=== PATIENT | male | born 1965 | race Caucasian/White ===

== ENCOUNTER 2020-07-30 22:07 | Inpatient (IN) | payer OTHER ==
[2020-07-30 22:15] VITALS: TEMP 98.3
[2020-07-30] MEDS ORDERED: NITROGLYCERIN SL TABS 0.4 MG TAB SUBLINGUAL STA (22:37)
--- NOTE | 2020-07-30 22:44 | ED ---
Chest Pain HPI - General Chief Complaint: Chest Pain Stated Complaint: Chest Pain Time Seen by Provider: 07/30/20 22:09 Source: patient, EMS Mode of arrival: EMS Limitations: no limitations - History of Present Illness MD Complaint: chest pain Onset/Timin -: hour(s) Onset: during rest Pain Location: substernal Pain Radiation: neck Severity: moderate Quality: other ("pinching") Consistency: constant Improves With: nitroglycerin Worsens With: nothing Anginal Symptoms: nausea, diaphoresis, dyspnea Treatments Prior to Arrival: aspirin, nitroglycerin, oxygen - Related Data Home Medications Medication Instructions Recorded Confirmed Albuterol Inhaler [Ventolin Hfa 2 puff INHALATION RT-QID PRN 07/31/20 07/31/20 Inhaler] Amitriptyline HCl [Elavil] 10 mg PO HS 07/31/20 07/31/20 Aspirin EC [Ecotrin Low Dose] 81 mg PO DAILY 07/31/20 07/31/20 Atorvastatin [Lipitor] 40 mg PO DAILY 07/31/20 07/31/20 Balance Of Nature Veggies 3 cap PO DAILY 07/31/20 07/31/20 Benzonatate [Tessalon Perles] 200 mg PO TID PRN 07/31/20 07/31/20 Enalapril [Vasotec] 20 mg PO DAILY 07/31/20 07/31/20 Golo Diet Supplement 1 cap PO AC-TID 07/31/20 07/31/20 Montelukast [Singulair] 10 mg PO HS 07/31/20 07/31/20 Propranolol HCl 80 mg PO DAILY 07/31/20 07/31/20 metFORMIN HCL ER [Glucophage Xr] 1,000 mg PO DAILY 07/31/20 07/31/20 Previous Rx's Medication Instructions Recorded Pantoprazole [Protonix] 40 mg PO AC-BRKFST #30 tablet. 07/31/20 Allergies Allergy/AdvReac Type Severity Reaction Status Date / Time codeine AdvReac Nausea & Verified 07/31/20 07:06 Vomiting morphine AdvReac Nausea & Verified 07/31/20 07:06 Vomiting Review of Systems ROS Statement: Those systems with pertinent positive or pertinent negative responses have been documented in the HPI. ROS Other: All systems not noted in ROS Statement are negative. Constitutional: Denies: fever, chills Respiratory: Reports: dyspnea. Denies: cough, hemoptysis Cardiovascular: Reports: chest pain. Denies: palpitations, orthopnea, edema, syncope Gastrointestinal: Reports: nausea. Denies: abdominal pain, vomiting, diarrhea Genitourinary: Denies: dysuria, hematuria Musculoskeletal: Denies: back pain Skin: Denies: rash Neurological: Denies: headache, weakness, numbness EKG Findings - EKG Results: EKG: interpreted by ERMD, sinus rhythm, normal axis, normal QRS, normal ST/T EKG shows: bradycardia (rate 58 bpm) Past Medical History Past Medical History: No Reported History History of Any Multi-Drug Resistant Organisms: None Reported Past Surgical History: Appendectomy, Cholecystectomy Past Psychological History: PTSD Smoking Status: Former smoker Past Alcohol Use History: Rare Past Drug Use History: None Reported - Past Family History family Additional Family Medical History / Comment(s): mother with CAD requiring multiple stents General Exam Limitations: no limitations General appearance: alert, in no apparent distress Head exam: Present: atraumatic, normocephalic Eye exam: Present: normal appearance. Absent: scleral icterus, conjunctival injection ENT exam: Present: normal oropharynx Neck exam: Present: normal inspection Respiratory exam: Present: normal lung sounds bilaterally, wheezes (trace expiratory wheeze). Absent: respiratory distress, rales, rhonchi, stridor Cardiovascular Exam: Present: normal rhythm, bradycardia, normal heart sounds. Absent: systolic murmur, diastolic murmur, rubs, gallop GI/Abdominal exam: Present: soft. Absent: distended, tenderness, guarding, rebound, rigid, mass Back exam: Present: normal inspection. Absent: CVA tenderness (R), CVA tenderness (L) Neurological exam: Present: alert Skin exam: Present: warm, dry, intact, normal color. Absent: rash Course Vital Signs 07/30/20 07/31/20 22:08 07:39 Temperature 98.3 F Pulse Rate 59 L 80 Respiratory 16 18 Rate Blood Pressure 142/78 134/61 O2 Sat by Pulse 96 99 Oximetry Disposition Clinical Impression: Chest pain, Hyperglycemia Disposition: ADMITTED IP TO THIS [facility] Condition: Stable
[2020-07-30 23:06] LABS: Basophils % (A) 0 %; Eosinophils # (A) 0.1 k/uL (0-0.7); Eosinophils % (A) 1 %; HCT 40.5 % (39.0-53.0); HGB 13.9 gm/dL (13.0-17.5); Lymphocytes # (A) 2.3 k/uL (1.0-4.8); Lymphocytes % (A) 22 %; MCH 30.5 pg (25.0-35.0); MCHC 34.2 g/dL (31.0-37.0); MCV 89.1 fL (80.0-100.0); Monocytes # (A) 0.6 k/uL (0-1.0); Monocytes % (A) 6 %; Neutrophils # (A) 7.5 k/uL (1.3-7.7); Neutrophils % (A) 71 %; Platelet Count 226 k/uL (150-450); RBC 4.55 m/uL (4.30-5.90); RDW 13.4 % (11.5-15.5); WBC 10.5 k/uL (3.8-10.6)
[2020-07-30 23:18] LABS: INR 0.9 (<1.2); Partial Thromboplastin Time 22.2 sec (22.0-30.0); Prothrombin Time 9.7 sec (9.0-12.0)
[2020-07-30 23:23] LABS: ALT 23 U/L (4-49); AST 36 U/L (17-59); African American GFR (CKD) >90 (>60 ml/min/1.73 sqM); Alkaline Phosphatase 159 U/L (38-126); Amylase 68 U/L (30-110); Anion Gap 9 mmol/L; Blood Urea Nitrogen 21 mg/dL (9-20); Calcium 9.4 mg/dL (8.4-10.2); Carbon Dioxide 23 mmol/L (22-30); Chloride 106 mmol/L (98-107); Glucose 218 mg/dL (74-99); Lipase 114 U/L (23-300); Magnesium 1.9 mg/dL (1.6-2.3); Non-African American GFR(CKD) >90 (>60 ml/min/1.73 sqM); Potassium 4.2 mmol/L (3.5-5.1); Sodium 138 mmol/L (137-145); Total Bilirubin 0.7 mg/dL (0.2-1.3); Total Protein 6.7 g/dL (6.3-8.2)
--- NOTE | 2020-07-30 23:44 | XR ---
EXAMINATION TYPE: XR chest 2V DATE OF EXAM: 07/30/2020 COMPARISON: NONE HISTORY: Chest pain TECHNIQUE: 2 views FINDINGS: There is no heart failure nor confluent pneumonic infiltrate. Heart size is normal. Mediast inum is normal. Bony thorax is intact. IMPRESSION: No active cardiopulmonary disease.
[2020-07-31] MEDS ORDERED: NITROGLYCERIN SL TABS 0.4 MG TAB SUBLINGUAL PRN ×2 (00:36→00:42)
[2020-07-31] MEDS ORDERED: SODIUM CHLORIDE 0.9% 1,000 ML IV STA (00:38)
[2020-07-31] MEDS ORDERED: ACETAMINOPHEN TAB 325 MG TAB PO PRN (00:41)
[2020-07-31] MEDS ORDERED: NALOXONE 0.4 MG/ML 1 ML VIAL IV PRN (00:41)
[2020-07-31] MEDS ORDERED: ALPRAZolam 0.25 MG TAB PO PRN (00:41)
[2020-07-31] MEDS ORDERED: ONDANSETRON 4 MG/2 ML VIAL IVP PRN (00:41)
[2020-07-31] MEDS ORDERED: ATORVASTATIN 40 MG TAB PO ONE (00:45)
[2020-07-31] MEDS ORDERED: MAG HYDROX/AL HYDROX/SIMETH 30 ML CUP PO PRN (00:55)
--- NOTE | 2020-07-31 01:00 | P.HPIM ---
History of Present Illness H&P Date: 07/30/20 Chief Complaint: chest pain 55 year old male with DM , hypertesion and hyperlipidemia patient comes in due to sudden onset chest pain , he was doing well, at his baseline status of health, functional with no limitations, today he mowed the lawn , and then went inside for some food. he had pizza , then while resting doing nothing, he felt retrosternal radiating to the jaw, pain was pressure like 8/10 in severity, and was getting worse, associated with nausea, diaphoresis and SOB. he never experienced anything like this before. he otherwise denies any exercise intolerance in the past. he otherwise denies any fever, chills, coughing, abd pain , diarrhea, urinary ch anges. he does report history of GERD requiring surgery in the ED, pain improved with nitro SL, Trops negative, EKG no acute ST changes, sinus jad CXR no acute patho Review of Systems Pertinent positives as noted in HPI. All other systems were reviewed and are negative Past Medical History Past Medical History: Diabetes Mellitus, Hyperlipidemia, Hypertension History of Any Multi-Drug Resistant Organisms: None Reported Past Surgical History: Appendectomy, Cholecystectomy Past Psychological History: PTSD Smoking Status: Former smoker Past Alcohol Use History: Rare Past Drug Use History: None Reported - Past Family History family Additional Family Medical History / Comment(s): mother with CAD requiring mult iple stents Medications and Allergies Allergies Allergy/AdvReac Type Severity Reaction Status Date / Time codeine Allergy Nausea & Verified 07/30/20 22:27 Vomiting morphine Allergy Nausea & Verified 07/30/20 22:28 Vomiting Physical Exam Vitals: Vital Signs Temp Pulse Resp BP Pulse Ox 07/30/20 22:08 98.3 F 59 L 16 142/78 96 Intake and Output 07/30/20 07/30/20 07/31/20 14:59 22:59 06:59 Other: Weight 101.151 kg Constitutional: No acute distress, conversant, pleasant Eyes: Anicteric sclerae, moist conjunctiva, Pupils equal round reactive to light ENMT: NC/AT Oropharynx clear, no erythema, or exudates Neck: Supple, FROM, no masses, or JVD No carotid bruits No thyromegaly Lungs: Clear to auscultation Clear to percussion Normal respiratory effort, no accessory muscle use Cardiovascular: Heart regular in rate and rhythm, No murmurs, gallops, or rubs No peripheral edema Abdominal: Soft Nontender, no guarding, rebound or rigidity Abdomen moving with respiration Normoactive bowel sounds No hepatomegaly, No splenomegaly No palpable mass No abdominal wall hernia noted Skin: Normal temperature, tone, texture, turgor No induration No subcutaneous nodules No rash, lesions No ulcers Extremities: No digital cyanosis No clubbing Pedal pulses intact and symmetrical Radial pulses intact and symmetrical No calf tenderness Psychiatric: Alert and oriented to person, place and time Appropriate affect fair judgement Neuro Muscles Strength 5/5 in all 4 extremities Sensation to light touch grossly present throughout Cranial nerves II-XII grossly intact No focal sensory deficits Lymphatics: no palpable cervical or supraclavicular , or inguinal lymph nodes Results CBC & Chem 7: 07/30/20 22:46 07/30/20 22:46 Labs: Abnormal Lab Results - Last 24 Hours (Table) 07/30/20 Range/Units 22:46 BUN 21 H (9-20) mg/dL Glucose 218 H (74-99) mg/dL Alkaline Phosphatase 159 H (38-126) U/L Assessment and Plan Assessment: chest pain , rule out ACS campus monitor nitro PRN EKG with chest pain trend trops cardiology consult ASA, statin monitor vital signs bed rest history of GERD PPI , maalox chronic conditions hypertension resume homemeds hyperlipidemia DM , insulin sliding scale hold oral hypoglycemic agents verify home meds CODE STATUS:full code DVT prophylaxis: mechanical Discussed with: Patient, ER, RN Anticipated length of stay < than [address]: home A total of 70 minutes was spent on the care of this complex patient more than 50% of the time was spent in counseling and care coordination.
[2020-07-31] MEDS: PANTOPRAZOLE 40 MG TABLET PO SCH ×2 (02:49→08:24)
[2020-07-31 06:13] LABS: Basophils % (A) 0 %; Eosinophils # (A) 0.1 k/uL (0-0.7); Eosinophils % (A) 1 %; HCT 40.7 % (39.0-53.0); HGB 14.1 gm/dL (13.0-17.5); Lymphocytes # (A) 2.9 k/uL (1.0-4.8); Lymphocytes % (A) 33 %; MCH 30.7 pg (25.0-35.0); MCHC 34.6 g/dL (31.0-37.0); MCV 88.9 fL (80.0-100.0); Mean Platelet Volume 6.7; Monocytes # (A) 0.5 k/uL (0-1.0); Monocytes % (A) 6 %; Neutrophils # (A) 5.1 k/uL (1.3-7.7); Neutrophils % (A) 58 %; Platelet Count 215 k/uL (150-450); RBC 4.58 m/uL (4.30-5.90); RDW 13.3 % (11.5-15.5); WBC 8.8 k/uL (3.8-10.6)
[2020-07-31 06:29] LABS: ALT 21 U/L (4-49); AST 28 U/L (17-59); African American GFR (CKD) >90 (>60 ml/min/1.73 sqM); Albumin 3.7 g/dL (3.5-5.0); Alkaline Phosphatase 126 U/L (38-126); Anion Gap 7 mmol/L; Blood Urea Nitrogen 18 mg/dL (9-20); Calcium 8.7 mg/dL (8.4-10.2); Carbon Dioxide 28 mmol/L (22-30); Chloride 106 mmol/L (98-107); Cholesterol 112 mg/dL (<200); Glucose 118 mg/dL (74-99); HDL Cholesterol 32 mg/dL (40-60); LDL Cholesterol,Calculated 60 mg/dL (0-99); Non-African American GFR(CKD) >90 (>60 ml/min/1.73 sqM); Potassium 3.8 mmol/L (3.5-5.1); Sodium 141 mmol/L (137-145); Total Bilirubin 0.6 mg/dL (0.2-1.3); Total Protein 6.4 g/dL (6.3-8.2); Triglycerides 102 mg/dL (<150)
[2020-07-31] MEDS ORDERED: HEPARIN SODIUM,PORCINE 2,500 UNIT in SODIUM CHLORIDE 0.9% 250 ML IRRIGATION PRN (07:00)
[2020-07-31] MEDS ORDERED: HEPARIN SODIUM,PORCINE 10,000 UNIT in SODIUM CHLORIDE 0.9% 1,000 ML IRRIGATION PRN (07:00)
[2020-07-31] MEDS ORDERED: ALBUTEROL NEBULIZED 2.5 MG/3 ML INHALATION PRN (07:22)
[2020-07-31] MEDS ORDERED: BENZONATATE 100 MG CAP PO PRN (07:22)
[2020-07-31] MEDS ORDERED: INSULIN ASPART (NovoLOG) 100 UNIT/ML VIAL SQ SCH (07:30)
[2020-07-31] MEDS ORDERED: ASPIRIN 325 MG TAB PO ONE (08:15)
[2020-07-31 08:23] LABS: Glucose,Whole Blood 127 mg/dL (75-99)
[2020-07-31] MEDS ORDERED: SODIUM CHLORIDE 0.9% 1,000 ML in EMPTY BAG 1 BAG IV ONE (08:30)
[2020-07-31] MEDS ORDERED: ASPIRIN 81 MG PO SCH (09:00)
[2020-07-31] MEDS ORDERED: ASPIRIN 325 MG TAB PO SCH (09:00)
[2020-07-31] MEDS ORDERED: lisinopriL 20 MG TAB PO SCH (09:00)
--- NOTE | 2020-07-31 09:09 | P.CRDCN ---
History of Present Illness History of present illness: HISTORY OF PRESENTING ILLNESS This is a pleasant 55-year-old male past medical history significant for hypertension, diabetes mellitus, dyslipidemia, PTSD and former nicotine dependence. He denies prior history of coronary artery disease and does not follow in the office with a pipe chipper. We have been asked to see in consultation for chest pain. He states yesterday afternoon cut the grass, went inside and a piece of pizza and had some pot. Shortly thereafter he developed a pinching sensation in the midsternal region. The pain quickly radiated up into his throat and change to a pressure/grinding sensation. It was associated with nausea, diaphoresis and shortness of breath. On arrival to the emergency department he was having ongoing chest discomfort. He was given sublingual nitroglycerin which did ultimately relieve his discomfort. He has had no further symptoms of chest discomfort since that time. He also does feel a strange sensation in his left axilla that is ongoing. DIAGNOSTICS EKG reveals sinus bradycardia heart rate of 58 with T-wave inversions in the inf erior leads. Chest xray negative for an acute cardiopulmonary process. Laboratory reviewed, CBC unremarkable, sodium 141, potassium 3.8, creatinine 0.68, magnesium 1.9, cardiac enzymes negative 3, LDL 60 and HDL 32. Current cardiac medications include propanolol 80 mg daily, enalapril 20 mg daily, atorvastatin 40 mg daily and aspirin 81 mg daily. REVIEW OF SYSTEMS At the time of my exam: CONSTITUTIONAL: Denies fever or chills. CARDIOVASCULAR: Denies chest pain, shortness of breath, orthopnea, PND or palpitations. RESPIRATORY: Denies cough. GASTROINTESTINAL: Denies abdominal pain, diarrhea, constipation, nausea or vomiting. MUSCULOSKELETAL: Denies myalgias. NEUROLOGIC: Denies numbness, tingling, headacbe or weakness. ENDOCRINE: Denies fatigue, weight change, polydipsia or polyurina. GENITOURINARY: Denies burning, hematuria or urgency with micturation. HEMATOLOGIC: Denies history of anemia or bleeding. PHYSICAL EXAMINATION Blood pressure 134/61 heart rate 80 afebrile and maintaining oxygen saturation on room air. CONSTITUTIONAL: No apparent distress. HEENT: Head is normocephalic. Pupils are equal, round. Sclerae anicteric. Mucous membranes of the mouth are moist. No JVD. No carotid bruit. CHEST EXAMINATION: Lungs are clear to auscultation. No chest wall tenderness is noted on palpation or with deep breathing. HEART EXAMINATION: Regular rate and rhythm. S1, S2 heard. No murmurs, gallops or rub. ABDOMEN: Soft, nontender. Positive bowel sounds. EXTREMITIES: 2+ peripheral pulses, no lower extremity edema and no calf tenderness. NEUROLOGIC EXAMINATION: Patient is awake, alert and oriented x3. ASSESSMENT Unstable angina Hypertension Diabetes mellitus Dyslipidemia Former nicotine dependence Family history of premature coronary artery disease PLAN An acute coronary event has been ruled out. Given the patient's symptoms and risk factor profile, recommend proceeding with cardiac catheterization to assess for underlying coronary artery disease. I have discussed the risks, benefits and alternative therapies for the above-mentioned procedure and for both sedation/analgesia as well as necessary blood product administration, if indicated, as they pertain to this patient. The patient has indicated understanding and acceptance of the risks and procedures discussed. Questions have been answered appropriately and he is agreeable to move forward with the above-stated procedure. Obtain 2-D echocardiogram and Doppler study to assess cardiac structure and function. Recommendations to follow based upon clinical course. Thank you kindly for this consultation. Nurse Practitioner note has been reviewed, I agree with a documented findings and plan of care. Patient was seen and examined. Past Medical History Past Medical History: Diabetes Mellitus, Hyperlipidemia, Hypertension History of Any Multi-Drug Resistant Organisms: None Reported Past Surgical History: Appendectomy, Cholecystectomy Past Psychological History: PTSD Smoking Status: Former smoker Past Alcohol Use History: Rare Past Drug Use History: None Reported - Past Family History family Additional Family Medical History / Comment(s): mother with CAD requiring multiple stents Medications and Allergies Home Medications Medication Instructions Recorded Confirmed Type Albuterol Inhaler [Ventolin Hfa 2 puff INHALATION RT-QID PRN 07/31/20 07/31/20 History Inhaler] Amitriptyline HCl [Elavil] 10 mg PO HS 07/31/20 07/31/20 History Aspirin EC [Ecotrin Low Dose] 81 mg PO DAILY 07/31/20 07/31/20 History Atorvastatin [Lipitor] 40 mg PO DAILY 07/31/20 07/31/20 History Balance Of Nature Fruits 3 cap PO DAILY 07/31/20 07/31/20 History Balance Of Nature Veggies 3 cap PO DAILY 07/31/20 07/31/20 History Benzonatate [Tessalon Perles] 200 mg PO TID PRN 07/31/20 07/31/20 History Enalapril [Vasotec] 20 mg PO DAILY 07/31/20 07/31/20 History Golo Diet Supplement 1 cap PO AC-TID 07/31/20 07/31/20 History Montelukast [Singulair] 10 mg PO HS 07/31/20 07/31/20 History Naproxen Sodium [Aleve] 220 - 440 mg PO BID PRN 07/31/20 07/31/20 History Propranolol HCl 80 mg PO DAILY 07/31/20 07/31/20 History metFORMIN HCL ER [Glucophage Xr] 1,000 mg PO DAILY 07/31/20 07/31/20 History predniSONE See Taper PO DAILY 07/31/20 07/31/20 History Allergies Allergy/AdvReac Type Severity Reaction Status Date / Time codeine AdvReac Nausea & Verified 07/31/20 07:06 Vomiting morphine AdvReac Nausea & Verified 07/31/20 07:06 Vomiting Physical Exam Vitals: Vital Signs Temp Pulse Resp BP Pulse Ox 07/31/20 07:39 80 18 134/61 99 07/30/20 22:08 98.3 F 59 L 16 142/78 96 Intake and Output 07/30/20 07/31/20 07/31/20 22:59 06:59 14:59 Other: Weight 101.151 kg Results 07/31/20 05:22 07/31/20 05:22 Cardiac Enzymes 07/30/20 07/30/20 07/31/20 Range/Units 22:46 22:46 02:53 AST 36 (17-59) U/L Troponin I <0.012 <0.012 (0.000-0.034) ng/mL 07/31/20 07/31/20 Range/Units 05:22 05:22 AST 28 (17-59) U/L Troponin I <0.012 (0.000-0.034) ng/mL Coagulation 07/30/20 Range/Units 22:46 PT 9.7 (9.0-12.0) sec APTT 22.2 (22.0-30.0) sec Lipids 07/31/20 Range/Units 05:22 Triglycerides 102 (<150) mg/dL Cholesterol 112 (<200) mg/dL HDL Cholesterol 32 L (40-60) mg/dL CBC 07/30/20 07/31/20 Range/Units 22:46 05:22 WBC 10.5 8.8 (3.8-10.6) k/uL RBC 4.55 4.58 (4.30-5.90) m/uL Hgb 13.9 14.1 (13.0-17.5) gm/dL Hct 40.5 40.7 (39.0-53.0) % Plt Count 226 215 (150-450) k/uL Comprehensive Metabolic Panel 07/30/20 07/31/20 Range/Units 22:46 05:22 Sodium 138 141 (137-145) mmol/L Potassium 4.2 3.8 (3.5-5.1) mmol/L Chloride 106 106 (98-107) mmol/L Carbon Dioxide 23 28 (22-30) mmol/L BUN 21 H 18 (9-20) mg/dL Creatinine 0.71 0.68 (0.66-1.25) mg/dL Glucose 218 H 118 H (74-99) mg/dL Calcium 9.4 8.7 (8.4-10.2) mg/dL AST 36 28 (17-59) U/L ALT 23 21 (4-49) U/L Alkaline Phosphatase 159 H 126 (38-126) U/L Total Protein 6.7 6.4 (6.3-8.2) g/dL Albumin 4.0 3.7 (3.5-5.0) g/dL Current Medications Generic Name Dose Route Start Last Admin Trade Name Freq PRN Reason Stop Dose Admin Acetaminophen 650 mg 07/31/20 00:41 Acetaminophen Tab 325 Mg Tab PO Q6HR PRN Mild Pain or Fever > 100.5 Al Hydroxide/Mg Hydroxide 30 ml 07/31/20 00:55 Mag Hydrox/Al Hydrox/Simeth 30 Ml Cup PO Q4HR PRN GI Upset Albuterol Sulfate 2.5 mg 07/31/20 07:22 Albuterol Nebulized 2.5 Mg/3 Ml INHALATION RT-QID PRN Shortness Of Breath Alprazolam 0.25 mg 07/31/20 00:41 Alprazolam 0.25 Mg Tab PO Q6HR PRN Anxiety Amitriptyline HCl 10 mg 07/31/20 21:00 Amitriptyline Hcl 10 Mg Tab PO HS [facility] Aspirin 325 mg 07/31/20 09:00 Aspirin 325 Mg Tab PO DAILY [facility] Atorvastatin Calcium 40 mg 07/31/20 21:00 Atorvastatin 40 Mg Tab PO HS [facility] Benzonatate 200 mg 07/31/20 07:22 Benzonatate 100 Mg Cap PO TID PRN Cough Sodium Chloride 1,000 mls @ 75 mls/hr 07/31/20 00:38 07/31/20 00:44 Saline 0.9% IV 07/31/20 13:57 75 mls/hr .[id number] STA Administration Insulin Aspart 0 unit 07/31/20 07:30 Insulin Aspart (Novolog) 100 Unit/Ml Vial SQ ACHS [facility] Protocol Lisinopril 40 mg 07/31/20 09:00 Lisinopril 20 Mg Tab PO DAILY [facility] Montelukast Sodium 10 mg 07/31/20 21:00 Montelukast 10 Mg Tab PO HS [facility] Naloxone HCl 0.2 mg 07/31/20 00:41 Naloxone 0.4 Mg/Ml 1 Ml Vial IV Q2M PRN Opioid Reversal Nitroglycerin 0.4 mg 07/31/20 00:36 07/31/20 00:39 Nitroglycerin Sl Tabs 0.4 Mg Tab SUBLINGUAL 0.4 mg Q5M PRN Administration Chest Pain Ondansetron HCl 4 mg 07/31/20 00:41 Ondansetron 4 Mg/2 Ml Vial IVP Q8HR PRN Nausea And Vomiting Pantoprazole Sodium 40 mg 07/31/20 01:00 07/31/20 02:49 Pantoprazole 40 Mg Tablet PO Not Given AC-BRKFST [facility] Intake and Output 07/30/20 07/31/20 07/31/20 22:59 06:59 14:59 Other: Weight 101.151 kg 07/31/20 05:22 07/31/20 05:22
[2020-07-31] MEDS ORDERED: VERAPAMIL 2.5 MG/ML 2 ML AMP ONE (10:36)
[2020-07-31] MEDS ORDERED: HEPARIN SODIUM 1,000 UN/ML (10ML VL) ONE (10:36)
[2020-07-31] MEDS ORDERED: fentaNYL (PF) 50 MCG/ML 2 ML AMP ONE (10:36)
[2020-07-31] MEDS ORDERED: LIDOCAINE 1% INJ 10MG/ML (20 ML MDV) ONE (10:36)
[2020-07-31] MEDS ORDERED: LIDOCAINE 1% INJ 10MG/ML (20 ML MDV) SQ ONE (11:17)
[2020-07-31] MEDS ORDERED: VERAPAMIL SYRINGE (5 MG/10 ML) INTRAARTER ONE (11:18)
[2020-07-31] MEDS ORDERED: MIDAZOLAM 2 MG/2 ML VIAL IV ONE ×2 (11:18)
[2020-07-31] MEDS ORDERED: fentaNYL (PF) 50 MCG/ML 2 ML AMP IV ONE (11:18)
[2020-07-31] MEDS ORDERED: HEPARIN SODIUM 1,000 UN/ML (10ML VL) IV ONE (11:19)
[2020-07-31] MEDS ORDERED: IOPAMIDOL-370 125ML BTL INJ ONE (11:46)
[2020-07-31] MEDS ORDERED: IV FLUID CONTINUATION 900 ML IV ONE (11:47)
[2020-07-31] MEDS ORDERED: RX INFO: IV CONTRAST WAS GIVEN 1 EACH MISC MISCELLANE PRN (12:01)
--- NOTE | 2020-07-31 12:05 | P.CARDCATH ---
Description of Procedure: PROCEDURES PERFORMED: Left heart catheterization, bilateral coronary angiography INDICATION: Unstable angina HISTORY: Patient is a pleasant 55-year-old male with history of hyperlipidemia, hypertension, borderline diabetes mellitus, and family history of CAD who presents with episode of chest pain associated with shortness breath, mild diaphoresis, nausea and improved with nitroglycerin. Symptoms were concerning with normal troponins for unstable angina and therefore heart catheterization was recommended. CONSENT:I have discussed the risks, benefits and alternative therapies for the above-mentioned procedure and for both sedation/analgesia as well as necessary blood product administration, if indicated, as they pertain to this patient. The patient has indicated understanding and acceptance of the risks and procedures discussed. PROCEDURE: After the risks, benefits and alternatives of the above mentioned procedure explained in detail with the patient, informed consent was obtained. Patient was taken to the catheterization lab and prepped and draped in usual fashion. 1% lidocaine was used to anesthetize the right radial artery. A 6- Georgian sheath was placed in the right radial artery using modified Seldinger technique. Left coronary angiography was performed with a 5-Georgian JL 3.5 catheter and right coronary angiography was performed with a 5-Georgian JR5 catheter in various views. A 5-Georgian pigtail catheter was inserted into the left ventricle and pressure measurements were obtained. The right radial sheath was removed and a TR band was placed with hemostasis achieved. The patient tolerated the procedure well. Patient was transported back to the post catheterization holding area in stable condition. Conscious Sedation: Patient was monitored under the direct supervision of vision of myself for conscious sedation using Versed and fentanyl for a total duration of 32 minutes HEMODYNAMICS: Aorta: 134/96 LV: 132/2, LVEDP 19 SELECTIVE CORONARY ARTERIOGRAPHY: LEFT MAIN: The left main is a large caliber vessel which bifurcates into the LAD and circumflex. There is no significant stenosis. LEFT ANTERIOR DESCENDING CORONARY ARTERY: LAD is a large caliber vessel which wraps around to the apex. There is a mid LAD 20-30% stenosis and otherwise normal. LEFT CIRCUMFLEX CORONARY ARTERY: Left circumflex is a moderate caliber vessel without significant stenosis. RIGHT CORONARY ARTERY: The right coronary artery is a large caliber vessel which gives off a PDA and PLV branch and is the dominant vessel. There is a mid RCA 20-30% stenosis. FINAL IMPRESSION: 1. Mild nonobstructive CAD as described above including mid LAD 20-30% stenosis and mid RCA 20-30% stenosis. PLAN: 1. Aggressive risk factor modification per most recent ACC/AHA guidelines. 2. Follow-up in the office in 1-2 weeks.
--- NOTE | 2020-07-31 12:47 | P.DS ---
Providers Date of admission: 07/31/20 00:41 Expected date of discharge: 07/31/20 Attending physician: Jose Maloney MD Consults: 07/31/20 00:42 Consult Physician Routine Consulting Provider: Avila Cortez Consult Reason/Comments: chest pain Do you want consulting provider notified?: Yes 07/31/20 00:43 Consult Physician Routine Consulting Provider: Ishan Mosquera Consult Reason/Comments: chest pain Do you want consulting provider notified?: Yes Primary care physician: [facility] Course: Discharge Diagnosis: Noncardiac chest pain GERD Diabetes Hypertension Dyslipidemia Obesity with BMI 32.9 Hospital Course: Patient is a 55-year-old male with diabetes, hypertension, and dyslipidemia who presented to the ER with complaints of chest pain. In the ER he underwent an extensive evaluation. Initial vital signs within normal limits, EKG revealed no signs of ischemia, troponin was negative. He is admitted for chest pain observation. The remainder of his troponins were negative. He was seen by cardiology and ultimately underwent a cardiac cath on 07/31. This demonstrated no significant lesions but approximately 20-36% stenosis in the LAD. Patient does have a history of GERD and this chest pain occurred after eating pizza and laying flat. He will have a trial of PPI for the next 4 weeks. He will follow up with cardiology in 2 weeks. Follow-up with Dr. Dickinson in 2-3 days. I did recommend discontinuing his prednisone and NSAIDs of the likely will flare his acid reflux. Patient seen and examined at bedside. Feeling tired. No chest pain or shortness of breath. Vital signs reviewed and stable. General: non toxic, no distress, appears at stated age Derm: warm, dry Head: atraumatic, normocephalic, symmetric Eyes: EOMI, no lid lag, anicteric sclera Mouth: no lip lesion, mucus membranes moist Cardiovascular: S1S2 reg, no murmur, positive posterior tibial pulse bilateral, Lungs: Decreased bs bilateral, no rhonchi, no rales , no accessory muscle use Ext: no gross muscle atrophy, no edema, no contractures Neuro: CN II-XI grossly intact, no focal neuro deficits Psych: Alert, oriented, appropriate affect A total of 25 minutes of time were spent preparing this complex discharge summary . Patient Condition at Discharge: Stable Plan - Discharge Summary New Discharge Prescriptions: New Pantoprazole [Protonix] 40 mg PO AC-BRKFST #30 tablet.dr Continue Montelukast [Singulair] 10 mg PO HS Golo Diet Supplement 1 cap PO AC-TID Balance Of Nature Veggies 3 cap PO DAILY Propranolol HCl 80 mg PO DAILY Benzonatate [Tessalon Perles] 200 mg PO TID PRN PRN Reason: Cough Albuterol Inhaler [Ventolin Hfa Inhaler] 2 puff INHALATION RT-QID PRN PRN Reason: Shortness Of Breath Amitriptyline HCl [Elavil] 10 mg PO HS Atorvastatin [Lipitor] 40 mg PO DAILY Enalapril [Vasotec] 20 mg PO DAILY Aspirin EC [Ecotrin Low Dose] 81 mg PO DAILY metFORMIN HCL ER [Glucophage Xr] 1,000 mg PO DAILY Discontinued Balance Of Nature Fruits 3 cap PO DAILY predniSONE See Taper PO DAILY Naproxen Sodium [Aleve] 220 - 440 mg PO BID PRN PRN Reason: Pain Discharge Medication List Albuterol Inhaler [Ventolin Hfa Inhaler] 2 puff INHALATION RT-QID PRN 07/31/20 [History] Amitriptyline HCl [Elavil] 10 mg PO HS 07/31/20 [History] Aspirin EC [Ecotrin Low Dose] 81 mg PO DAILY 07/31/20 [History] Atorvastatin [Lipitor] 40 mg PO DAILY 07/31/20 [History] Balance Of Nature Veggies 3 cap PO DAILY 07/31/20 [History] Benzonatate [Tessalon Perles] 200 mg PO TID PRN 07/31/20 [History] Enalapril [Vasotec] 20 mg PO DAILY 07/31/20 [History] Golo Diet Supplement 1 cap PO AC-TID 07/31/20 [History] Montelukast [Singulair] 10 mg PO HS 07/31/20 [History] Pantoprazole [Protonix] 40 mg PO AC-BRKFST #30 tablet. 07/31/20 [Rx] Propranolol HCl 80 mg PO DAILY 07/31/20 [History] metFORMIN HCL ER [Glucophage Xr] 1,000 mg PO DAILY 07/31/20 [History] Follow up Appointment(s)/Referral(s): Bridger Frausto DO [STAFF PHYSICIAN] - 1 Week Maikel Chowdary DO [Primary Care Provider] - 1-2 days Activity/Diet/Wound Care/Special Instructions: Activity: as tolerated Diet: heart healthy, carb consistent Special Instructions: You can resume metformin on 08/02 Discharge Disposition: HOME SELF-CARE
[2020-07-31 14:35] VITALS: RESP 16
[2020-07-31 14:49] VITALS: BP 142/83; PULSE 48
[2020-07-31] MEDS ORDERED: AMITRIPTYLINE HCL 10 MG TAB PO SCH (21:00)
[2020-07-31] MEDS ORDERED: ATORVASTATIN 40 MG TAB PO SCH (21:00)
[2020-07-31] MEDS ORDERED: MONTELUKAST 10 MG TAB PO SCH (21:00)
--- NOTE | 2020-08-01 07:09 | ECHOF ---
Referral Reason:cp MEASUREMENTS -------- HEIGHT: 175.3 cm WEIGHT: 101.2 kg BP: 134/61 RVIDd: 3.7 cm (< 3.3) IVSd: 1.5 cm (0.6 - 1.1) LVIDd: 4.9 cm (3.9 - 5.3) LVPWd: 1.2 cm (0.6 - 1.1) IVSs: 2.1 cm LVIDs: 3.4 cm LVPWs: 1.7 cm LAESV Index (A-L): 40.32 ml/m Ao Diam: 3.6 cm (2.0 - 3.7) AV Cusp: 2.2 cm (1.5 - 2.6) MV EXCURSION: 16.847 mm (> 18.000) MV EF SLOPE: 64 mm/s (70 - 150) EPSS: 0.2 cm MV E Geremias: 0.61 m/s MV DecT: 267 ms MV A Geremias: 0.90 m/s MV E/A Ratio: 0.68 RAP: 5.00 mmHg RVSP: 25.60 mmHg FINDINGS -------- Sinus rhythm. This was a technically difficult study with suboptimal views. Patient is post cardiac catheterizati on and cannot be in left lateral position. The left ventricular size is normal. There is moderate concentric left ventricular hypertrophy. O verall left ventricular systolic function is normal with, an EF between 55 - 60 %. The diastolic fi lling pattern is normal for the age of the patient 8.08. The right ventricle is mildly enlarged. LA is moderately dilated 34-39 ml/m2 The right atrium was not well visualized. 5.0mg of Lumason was utilized for enhancement of images Interatrial and interventricular septum intact. The aortic valve is trileaflet, and appears structurally normal. No aortic stenosis or regurgitation. The mitral valve is normal. [id number] mitral regurgitation is present. The tricuspid valve appears structurally normal. Mild tricuspid regurgitation present. Right vent ricular systolic pressure is normal at < 35 mmHg. The right ventricular systolic pressure, as measu red by Doppler, is 25.60mmHg. The pulmonic valve was not well visualized. There is no pulmonic regurgitation present. The aortic root size is normal. IVC Not well visulized. There is no pericardial effusion. CONCLUSIONS -------- 1. This was a technically difficult study with suboptimal views. 2. There is moderate concentric left ventricular hypertrophy. 3. Overall left ventricular systolic function is normal with, an EF between 55 - 60 %. 4. The right ventricle is mildly enlarged. 5. LA is moderately dilated 34-39 ml/m2 6. The aortic valve is trileaflet, and appears structurally normal. No aortic stenosis or regurgitati on. 7. [id number] mitral regurgitation is present. 8. Mild tricuspid regurgitation present. INSPECTOR CIRCUITRY NEGATIVE: Rin Silva RDCS
[2020-08-01] MEDS ORDERED: ASPIRIN 81 MG PO SCH (09:00)
[2020-08-01] MEDS ORDERED: ASPIRIN 325 MG TAB PO SCH (09:00)
== END 2020-07-31 17:07 | disposition home or self-care (01) | DRG 287 ==
LOC: EC 22:07 → 1SOBS 07-31 00:41 → OBSVTOIN 07-31 12:01
PROVIDERS: ADMIT Internal Medicine; ATTEND Internal Medicine
PROC: B205YZZ Plain Radiography of Left Heart using Other Contrast (ICD-10-PCS; 2020-07-31)
PROC: B201YZZ Plain Radiography of Multiple Coronary Arteries using Other Contrast (ICD-10-PCS; 2020-07-31)
PROC: 4A023N7 Measurement of Cardiac Sampling and Pressure, Left Heart, Percutaneous Approach (ICD-10-PCS; principal; 2020-07-31 15:05)
DX: R07.89 Other chest pain (principal); K21.9 Gastro-esophageal reflux disease without esophagitis; E11.65 Type 2 diabetes mellitus with hyperglycemia; I10 Essential (primary) hypertension; E78.5 Hyperlipidemia, unspecified; I25.10 Atherosclerotic heart disease of native coronary artery without angina pectoris; Z20.822 Contact with and (suspected) exposure to COVID-19; E66.9 Obesity, unspecified; Z68.32 Body mass index [BMI] 32.0-32.9, adult; F43.10 Post-traumatic stress disorder, unspecified; Z79.82 Long term (current) use of aspirin; Z79.84 Long term (current) use of oral hypoglycemic drugs; Z79.899 Other long term (current) drug therapy; Z82.49 Family history of ischemic heart disease and other diseases of the circulatory system; Z87.891 Personal history of nicotine dependence
CPT/HCPCS: 36415; 71046; 80053; 80061; 82150; 83036; 83690; 83735; 84484; 85025; 85610; 85730; 87636; 93005; 93306; 93458; 99285